=== PATIENT | female | born 1935 | race Caucasian/White ===

== ENCOUNTER → 2023-05-27 | Outpatient (CLI) | payer MEDICARE | END | disposition home or self-care (01) | LOC: CARD 09:42 | PROVIDERS: ATTEND Internal Medicine Cardiovascular Disease | DX: E03.9 Hypothyroidism, unspecified (principal); R00.1 Bradycardia, unspecified ==

== ENCOUNTER 2023-11-13 20:31 | Emergency (ER) | payer MEDICARE ==
[~2023-11-13] VITALS: Ht 154.9 cm; Wt 61.7 kg
[2023-11-13] MEDS ORDERED: WELLBUTRIN SR150 MG PO (21:15)
[2023-11-13] MEDS ORDERED: ESCITALOPRAM OX10 MG PO (21:16)
[2023-11-13] MEDS ORDERED: LEVOTHYROXINE75 MCG PO (21:16)
[2023-11-13] MEDS ORDERED: Ondansetron Hydrochloride 4 MG/2 ML VIAL IV ONE (21:45)
[2023-11-13] MEDS ORDERED: MORPHINE Sulfate 2 MG/ML SYR IV ONE (21:45)
[2023-11-13] MEDS ORDERED: SODIUM CHLORIDE 0.9% 1,000 ML IV ONE (21:45)
[2023-11-13] MEDS ORDERED: IOHEXOL 300 MG/ML 100 ML VIAL IV ONE (21:50)
[2023-11-13 22:03] LABS: BASO # 0.1 10*3/uL (0.0-0.1); BASO % 0.5 % (0.0-1.0); EOS % 0.3 % (1.0-4.0); HEMATOCRIT 39.9 % (37.0-47.0); LYMPH # 0.6 10*3/uL (1.3-4.4); LYMPH % 5.2 % (27.0-41.0); MEAN CELL VOLUME 96.8 fl (81.0-99.0); MEAN CORPUSCULAR HGB 32.3 pg (27.0-31.0); MEAN CORPUSCULAR HGB CONC 33.3 g/dl (33.0-37.0); MEAN PLATELET VOLUME 9.1 fl (9.6-12.3); MONO # 1.1 10*3/uL (0.1-1.0); MONO % 9.4 % (3.0-9.0); NEUT # 9.6 10*3/uL (2.3-7.9); NEUT % 84.3 % (47.0-73.0); PLATELET COUNT AUTOMATED 325 10*3/uL (130-400); RED BLOOD COUNT 4.12 10*6/uL (4.10-5.10); RED CELL DISTRI WIDTH 12.5 % (0-14.5); WHITE BLOOD COUNT 11.4 10*3/uL (4.8-10.8)
[2023-11-13 22:27] LABS: POTASSIUM 3.7 mmol/L (3.4-5.1); TOTAL PROTEIN 6.8 gm/dL (6.0-8.0)
[2023-11-13 23:21] LABS: BILIRUBIN 1+ (Negative); BLOOD Negative (Negative); CLARITY Clear (Clear); COLOR Dark Yellow (Yellow); GLUCOSE Negative (Negative); KETONE 2+ (Negative); LEUKO ESTERASE Trace (Negative); NITRITE Negative (Negative)
[2023-11-13 23:36] LABS: BACTERIA 1+; FINE GRANULAR CAST 0-2; MUCOUS 1+; RBC 0-2 rbc/hpf (0-2)
[2023-11-14] MEDS ORDERED: SODIUM CHLORIDE 0.9% 1,000 ML IV ONE (01:45)
[2023-11-14] MEDS ORDERED: Piperacillin Sodium/Tazobact 50 ML IV ONE (01:45)
[2023-11-14] MEDS ORDERED: MORPHINE Sulfate 2 MG/ML SYR IV PRN (07:10)
[2023-11-14] MEDS ORDERED: ACETAMINOPHEN 325 MG TAB PO PRN (07:50)
[2023-11-14] MEDS ORDERED: Piperacillin Sodium/Tazobact 2.25 GM in SODIUM CHLORIDE 0.9% 50 ML IV SCH (08:00)
== END 2023-11-14 12:06 | disposition short-term general hospital (02) ==
LOC: ED 20:31
PROVIDERS: Internal Medicine
DX: K83.1 Obstruction of bile duct (principal); E80.6 Other disorders of bilirubin metabolism; R74.01 Elevation of levels of liver transaminase levels; R11.2 Nausea with vomiting, unspecified; K21.9 Gastro-esophageal reflux disease without esophagitis; N17.9 Acute kidney failure, unspecified; E03.9 Hypothyroidism, unspecified; F32.A Depression, unspecified; Z90.12 Acquired absence of left breast and nipple

== ENCOUNTER 2024-03-21 17:31 | Emergency (ER) | payer MEDICARE ==
[~2024-03-21] VITALS: Ht 154.9 cm; Wt 61.0 kg
[~2024-03-21 17:31] MED LIST: ESCITALOPRAM OX10 MG PO; LEVOTHYROXINE75 MCG PO; WELLBUTRIN SR150 MG PO
[2024-03-21] MEDS ORDERED: Acetaminophen/Hydrocodone 5 MG/325 MG TABLET PO ONE ×2 (18:25→20:45)
[2024-03-21] MEDS ORDERED: PREDNISONE20 M1 PO (20:41)
[2024-03-21] MEDS ORDERED: HYDROCODONE-AC1 EAC1 PO (20:41)
[2024-03-21] MEDS ORDERED: methylPREDNISolone sod succ 125 MG VIAL IM ONE (20:45)
== END 2024-03-21 21:04 | disposition home or self-care (01) ==
LOC: ED 17:31
DX: M51.369 Other intervertebral disc degeneration, lumbar region without mention of lumbar back pain or lower extremity pain (principal); M79.605 Pain in left leg; F32.A Depression, unspecified; E03.9 Hypothyroidism, unspecified; K21.9 Gastro-esophageal reflux disease without esophagitis; Z90.12 Acquired absence of left breast and nipple

== ENCOUNTER → 2024-05-17 | Outpatient (CLI) | payer MEDICARE ==
[~2024-05-17] MED LIST changes: +HYDROCODONE-AC1 EAC1 PO; +PREDNISONE20 M1 PO
== END | disposition home or self-care (01) ==
LOC: MAMMO 11:07
PROVIDERS: ATTEND Internal Medicine
DX: Z12.31 Encounter for screening mammogram for malignant neoplasm of breast (principal); R92.30 Dense breasts, unspecified; Z90.12 Acquired absence of left breast and nipple

== ENCOUNTER 2024-08-28 16:36 | Emergency (ER) | payer MEDICARE ==
[~2024-08-28] VITALS: Ht 154.9 cm; Wt 59.9 kg
[2024-08-28] MEDS ORDERED: Metoclopramide Hydrochloride 10 MG/2 ML VIAL IV ONE (16:55)
[2024-08-28] MEDS ORDERED: SODIUM CHLORIDE 0.9% 1,000 ML IV ONE (16:55)
[2024-08-28] MEDS ORDERED: diphenhydrAMINE hydrochloride 50 MG/ML VIAL IV ONE (16:55)
[2024-08-28] MEDS ORDERED: ACETAMINOPHEN 325 MG TAB PO ONE (17:00)
[2024-08-28] MEDS ORDERED: Dexamethasone Sodium Phospha 20 MG/5 ML VIAL IV ONE (17:00)
== END 2024-08-28 20:26 | disposition home or self-care (01) ==
LOC: ED 16:36
DX: R51.9 Headache, unspecified (principal); M43.6 Torticollis; Z79.899 Other long term (current) drug therapy

== ENCOUNTER → 2024-08-30 | Outpatient (CLI) | payer MEDICARE ==
[2024-08-30 12:23] LABS: BASO # 0.1 10*3/uL (0.0-0.1); BASO % 1.1 % (0.0-1.0); EOS # 0.2 10*3/uL (0.0-0.4); EOS % 2.6 % (1.0-4.0); MEAN CELL VOLUME 96.2 fl (81.0-99.0); MEAN CORPUSCULAR HGB 31.5 pg (27.0-31.0); MEAN PLATELET VOLUME 8.8 fl (9.6-12.3); MONO # 0.4 10*3/uL (0.1-1.0); MONO % 6.3 % (3.0-9.0); NEUT # 5.3 10*3/uL (2.3-7.9); NEUT % 75.5 % (47.0-73.0); NUCLEATED RED BLOOD CELL 0.0 % (0.0-0.0); NUCLEATED RED BLOOD CELL 0.0 10*3/uL (0.0-0.0); PLATELET COUNT AUTOMATED 317 10*3/uL (130-400); RED CELL DISTRI WIDTH 13.2 % (0-14.5)
[2024-08-30 13:17] LABS: BUN 15.0 mg/dl (9-23); SGPT/ALT 12.0 U/L (5-49)
== END ==
LOC: LAB 11:53
PROVIDERS: ATTEND Internal Medicine
DX: E83.42 Hypomagnesemia (principal); R51.9 Headache, unspecified; E03.9 Hypothyroidism, unspecified

== ENCOUNTER 2024-09-17 08:07 | Emergency (ER) | payer MEDICARE ==
[~2024-09-17] VITALS: Ht 154.9 cm; Wt 59.0 kg
[2024-09-17] MEDS ORDERED: LIDOCAINE 1 EA PATCH T ONE (10:40)
[2024-09-17] MEDS ORDERED: [UNRECOGNIZED DRUG - OTHER] T (11:50)
[2024-09-17] MEDS ORDERED: LYRICA25 M1 PO (11:50)
== END 2024-09-17 12:16 | disposition home or self-care (01) ==
LOC: ED 08:07
DX: B02.9 Zoster without complications (principal); Z79.899 Other long term (current) drug therapy

== ENCOUNTER 2024-10-13 20:15 | Emergency (ER) | payer MEDICARE ==
[~2024-10-13] VITALS: Ht 154.9 cm; Wt 59.0 kg
[~2024-10-13 20:15] MED LIST changes: +LYRICA25 M1 PO; +[UNRECOGNIZED DRUG - OTHER] T
== END 2024-10-13 21:24 | disposition home or self-care (01) ==
LOC: ED 20:15
DX: F13.239 Sedative, hypnotic or anxiolytic dependence with withdrawal, unspecified (principal); R42 Dizziness and giddiness; R45.89 Other symptoms and signs involving emotional state; Z79.899 Other long term (current) drug therapy